=== PATIENT | female | born 1990 | race Hispanic/Latino ===

== ENCOUNTER 2016-08-07 09:36 | Emergency (ER) | payer SELFPAY ==
[~2016-08-07] VITALS: Ht 162.6 cm; Wt 97.3 kg
[2016-08-07 10:49] LABS: ADD MIUA? YES; BILIRUBIN NEGATIVE; BLOOD NEGATIVE; COLOR YELLOW ((YELLOW)); GLUCOSE (STRIP) NEGATIVE; KETONES NEGATIVE; LEUKOCYTES NEGATIVE; NITRITE NEGATIVE; PROTEIN (STRIP) NEGATIVE; UROBILINOGEN 0.2 MG/DL (0.2-1.0)
[2016-08-07 10:55] LABS: EOSINOPHIL (%) 2.1 % (0-5); EOSINOPHIL COUNT 0.2 K/uL (0-0.3); HEMATOCRIT 37.3 % (36.0-46.0); IMMATURE GRANULOCYTE (%) 0.3 % (0.0-0.7); IMMATURE GRANULOCYTE COUNT 0.2 K/uL; MCH 30.9 PG (29.0-34.0); MCHC 34.3 G/DL (30.0-36.0); MCV 90.1 FL (83-99); MEAN PLAT.VOLUME 9.7 uM^3 (9.5-12.4); MONOCYTE (%) 8.4 % (3-12); MONOCYTE COUNT 0.6 K/uL (0-0.8); NEUTROPHIL (%) 61.7 % (45-76); NEUTROPHIL COUNT 4.5 K/uL (1.8-6.4); PLATELET COUNT 244 K/uL (156-360); RBC DIS.WIDTH-CV 12.9 % (11.8-14.6); RBC DIS.WIDTH-SD 41.7 % (39-53); RED BLOOD COUNT 4.14 M/uL (3.80-5.20); WHITE BLOOD COUNT 7.3 K/uL (4.1-10.2)
[2016-08-07 11:07] LABS: CHLORIDE 107 mEq/L (99-109); POTASSIUM 3.7 mEq/L (3.7-5.4); SODIUM 139 mEq/L (136-147)
[2016-08-07 11:09] LABS: GLUCOSE 87 mg/dL (70-99)
[2016-08-07 11:10] LABS: ANION GAP 7 MEQ/L (2-14)
[2016-08-07 11:12] LABS: GFR ESTIMATE (CALCULATED) > 59 mL/min/
[2016-08-07 11:13] LABS: UREA NITROGEN (BUN) 9 mg/dL (9-23)
[2016-08-07 11:17] LABS: BACTERIA NONE SEEN /HPF; EPITHELIAL CELLS 1+ /HPF; MUCUS NONE SEEN /LPF; RED BLOOD CELLS 0-5 /HPF (0-5); UCUL ADDED? NO; WHITE BLOOD CELLS 0-5 /HPF (0-5)
[2016-08-07 11:40] LABS: QUANTITATIVE HCG 23029.6 MIU/ML
[2016-08-07 12:52] VITALS: BP 122/78
== END 2016-08-07 12:52 | disposition home or self-care (01) ==
LOC: EME 09:36
PROVIDERS: Emergency Medicine
DX: O26.891 Other specified pregnancy related conditions, first trimester (principal); R10.9 Unspecified abdominal pain
CPT/HCPCS: 80048; 81003; 84702; 85025; 99281; 99284

== ENCOUNTER 2016-09-11 16:50 | Emergency (ER) | payer SELFPAY ==
[~2016-09-11] VITALS: Ht 165.1 cm; Wt 97.8 kg
[2016-09-11 17:47] LABS: HEMATOCRIT 40.8 % (36.0-46.0); MCH 29.7 PG (29.0-34.0); MCHC 32.8 G/DL (30.0-36.0); MCV 90.5 FL (83-99); MEAN PLAT.VOLUME 9.8 uM^3 (9.5-12.4); PLATELET COUNT 265 K/uL (156-360); RBC DIS.WIDTH-CV 12.2 % (11.8-14.6); RBC DIS.WIDTH-SD 40.4 % (39-53); RED BLOOD COUNT 4.51 M/uL (3.80-5.20); WHITE BLOOD COUNT 9.9 K/uL (4.1-10.2)
[2016-09-11] MEDS ORDERED: NORCO 5/3251 TABLET PO (20:24)
[2016-09-11 20:31] LABS: ADD MIUA? YES; BILIRUBIN NEGATIVE; BLOOD LARGE; GLUCOSE (STRIP) NEGATIVE; KETONES NEGATIVE; LEUKOCYTES SMALL; NITRITE NEGATIVE; PROTEIN (STRIP) NEGATIVE; SPECIFIC GRAVITY 1.012 (1.000-1.030); UROBILINOGEN 0.2 MG/DL (0.2-1.0)
[2016-09-11 20:37] LABS: COLOR LT.RED ((YELLOW))
[2016-09-11 20:59] VITALS: BP 109/75
[2016-09-11 21:17] LABS: BACTERIA 2+ /HPF; EPITHELIAL CELLS 2+ /HPF; MUCUS NONE SEEN /LPF; RED BLOOD CELLS TNTC /HPF (0-5); UCUL ADDED? NO; WHITE BLOOD CELLS 0-5 /HPF (0-5)
== END 2016-09-11 20:59 | disposition home or self-care (01) ==
LOC: EME 16:50 → RME 16:50
DX: O02.1 Missed abortion (principal); N93.9 Abnormal uterine and vaginal bleeding, unspecified; R10.2 Pelvic and perineal pain
CPT/HCPCS: 81003; 84702; 85027

== ENCOUNTER 2017-02-15 21:37 | Emergency (ER) | payer SELFPAY ==
[~2017-02-15] VITALS: Ht 157.5 cm; Wt 99.8 kg
[~2017-02-15 21:37] MED LIST: NORCO 5/3251 TABLET PO
[2017-02-15 22:38] LABS: HEMATOCRIT 36.2 % (36.0-46.0); MCH 30.3 PG (29.0-34.0); MCV 89.2 FL (83-99); PLATELET COUNT 248 K/uL (156-360); RBC DIS.WIDTH-CV 12.3 % (11.8-14.6); RBC DIS.WIDTH-SD 40.4 % (39-53); RED BLOOD COUNT 4.06 M/uL (3.80-5.20); WHITE BLOOD COUNT 8.3 K/uL (4.1-10.2)
[2017-02-15 22:51] LABS: CHLORIDE 105 mEq/L (99-109); POTASSIUM 3.8 mEq/L (3.7-5.4); SODIUM 138 mEq/L (136-147)
[2017-02-15 22:53] LABS: GLUCOSE 93 mg/dL (70-99)
[2017-02-15 22:55] LABS: ANION GAP 8 MEQ/L (2-14); TOTAL BILIRUBIN 0.2 mg/dL (0.0-1.0)
[2017-02-15 22:57] LABS: ALKALINE PHOSPHATASE 53 IU/L (3-129); GFR ESTIMATE (CALCULATED) > 59 mL/min/
[2017-02-15 22:58] LABS: UREA NITROGEN (BUN) 7 mg/dL (9-23)
[2017-02-15 23:00] LABS: LIPASE 8 U/L (1.0-51.0)
[2017-02-15 23:07] LABS: QUANTITATIVE HCG 10308.2 MIU/ML
[2017-02-15 23:35] LABS: ADD MIUA? YES; BILIRUBIN NEGATIVE; BLOOD NEGATIVE; COLOR COLORLESS ((YELLOW)); GLUCOSE (STRIP) NEGATIVE; KETONES NEGATIVE; LEUKOCYTES TRACE; NITRITE NEGATIVE; PROTEIN (STRIP) NEGATIVE; SPECIFIC GRAVITY 1.005 (1.000-1.030); UROBILINOGEN 0.2 MG/DL (0.2-1.0)
[2017-02-15 23:41] LABS: BACTERIA RARE /HPF; EPITHELIAL CELLS RARE /HPF; MUCUS NONE SEEN /LPF; RED BLOOD CELLS 0-5 /HPF (0-5); UCUL ADDED? NO; WHITE BLOOD CELLS 0-5 /HPF (0-5)
[2017-02-16 00:10] VITALS: BP 123/79
== END 2017-02-16 00:11 | disposition home or self-care (01) ==
LOC: EME 21:37
DX: O20.0 Threatened abortion (principal); Z3A.18 18 weeks gestation of pregnancy
CPT/HCPCS: 76805; 80053; 81003; 83690; 84702; 85027; 99281; 99283

== ENCOUNTER → 2017-02-28 | Outpatient (CLI) | payer SELFPAY | END | disposition home or self-care (01) | LOC: RAD 09:08 | DX: Z3A.19 19 weeks gestation of pregnancy (principal) | CPT/HCPCS: 76805 ==

== ENCOUNTER → 2017-05-09 | Outpatient (CLI) | payer SELFPAY | END | disposition home or self-care (01) | LOC: RAD 03-21 14:00 | DX: Z36.2 Encounter for other antenatal screening follow-up (principal); Z3A.29 29 weeks gestation of pregnancy | CPT/HCPCS: 76816 ==

== ENCOUNTER → 2017-06-06 | Outpatient (CLI) | payer SELFPAY | END | disposition home or self-care (01) | LOC: RAD 10:00 | DX: Z3A.34 34 weeks gestation of pregnancy (principal) | CPT/HCPCS: 76816 ==

== ENCOUNTER 2017-07-15 06:30 | Inpatient (IN) | payer OTHER ==
[2017-07-15] VITALS (22 sets, daily range): BP systolic 103–131; BP diastolic 57–80
[~2017-07-15] VITALS: Ht 160 cm; Wt 101.3 kg
[2017-07-15 10:22] LABS: BASOPHIL (%) 0.3 % (0-1); EOSINOPHIL (%) 1.4 % (0-5); EOSINOPHIL COUNT 0.1 K/uL (0-0.3); HEMATOCRIT 34.7 % (36.0-46.0); HEMOGLOBIN 11.7 G/DL (11.9-15.5); IMMATURE GRANULOCYTE (%) 0.6 % (0.0-0.7); LYMPHOCYTE (%) 16.5 % (15-42); LYMPHOCYTE COUNT 1.3 K/uL (1.0-2.8); MCH 29.1 PG (29.0-34.0); MCHC 33.7 G/DL (30.0-36.0); MCV 86.3 FL (83-99); MONOCYTE (%) 8.3 % (3-12); MONOCYTE COUNT 0.7 K/uL (0-0.8); NEUTROPHIL (%) 72.9 % (45-76); NEUTROPHIL COUNT 5.8 K/uL (1.8-6.4); PLATELET COUNT 244 K/uL (156-360); RBC DIS.WIDTH-CV 13.6 % (11.8-14.6); RBC DIS.WIDTH-SD 42.5 % (39-53); RED BLOOD COUNT 4.02 M/uL (3.80-5.20)
[2017-07-16 07:20] LABS: BASOPHIL (%) 0.2 % (0-1); EOSINOPHIL (%) 0.7 % (0-5); EOSINOPHIL COUNT 0.1 K/uL (0-0.3); HEMATOCRIT 31.5 % (36.0-46.0); HEMOGLOBIN 10.5 G/DL (11.9-15.5); IMMATURE GRANULOCYTE (%) 0.6 % (0.0-0.7); LYMPHOCYTE (%) 15.9 % (15-42); LYMPHOCYTE COUNT 1.8 K/uL (1.0-2.8); MCH 29.2 PG (29.0-34.0); MCHC 33.3 G/DL (30.0-36.0); MCV 87.5 FL (83-99); MONOCYTE (%) 9.6 % (3-12); MONOCYTE COUNT 1.1 K/uL (0-0.8); NEUTROPHIL COUNT 8.1 K/uL (1.8-6.4); PLATELET COUNT 263 K/uL (156-360); RBC DIS.WIDTH-CV 13.7 % (11.8-14.6); RBC DIS.WIDTH-SD 43.7 % (39-53)
[2017-07-16 07:48] VITALS: BP 111/62
[2017-07-16 14:10] VITALS: BP 105/58
[2017-07-16 23:29] VITALS: BP 102/58
== END 2017-07-17 13:45 | disposition home or self-care (01) | DRG 775 ==
LOC: LDRP-OP 06:30 → 2WEST 06:31 → LDRP-OP 08-12 00:03
PROVIDERS: Advanced Practice Midwife
DX: O70.0 First degree perineal laceration during delivery (principal); O69.1XX0 Labor and delivery complicated by cord around neck, with compression, not applicable or unspecified; O99.214 Obesity complicating childbirth; E66.9 Obesity, unspecified; Z68.38 Body mass index [BMI] 38.0-38.9, adult; Z23 Encounter for immunization; Z3A.40 40 weeks gestation of pregnancy; Z37.0 Single live birth
CPT/HCPCS: 85025; 90686; J0595; J7120

== ENCOUNTER 2017-09-17 08:26 | Observation (INO) | payer OTHER ==
[~2017-09-17] VITALS: Ht 160 cm; Wt 95.5 kg
[2017-09-17 08:54] LABS: HEMATOCRIT 40.7 % (36.0-46.0); HEMOGLOBIN 13.8 G/DL (11.9-15.5); MCH 29.1 PG (29.0-34.0); MCHC 33.9 G/DL (30.0-36.0); MCV 85.7 FL (83-99); RBC DIS.WIDTH-CV 14.4 % (11.8-14.6); RBC DIS.WIDTH-SD 45.4 % (39-53); RED BLOOD COUNT 4.75 M/uL (3.80-5.20); WHITE BLOOD COUNT 14.7 K/uL (4.1-10.2)
[2017-09-17 08:58] LABS: APPEARANCE CLOUDY ((CLEAR)); BILIRUBIN NEGATIVE; BLOOD SMALL; COLOR YELLOW ((YELLOW)); GLUCOSE (STRIP) NEGATIVE; KETONES NEGATIVE; LEUKOCYTES MODERATE; NITRITE NEGATIVE; PROTEIN (STRIP) 30; SPECIFIC GRAVITY 1.027 (1.000-1.030)
[2017-09-17 09:01] LABS: BACTERIA RARE /HPF; CALCIUM OXALATE CRYSTALS 1+ /HPF; EPITHELIAL CELLS 3+ /HPF; MUCUS TRACE /LPF; RED BLOOD CELLS 0-5 /HPF (0-5); UCUL ADDED? YES
[2017-09-17 09:15] LABS: ALBUMIN 4.5 g/dL (3.2-4.8); CHLORIDE 100 mEq/L (99-109); POTASSIUM 3.8 mEq/L (3.7-5.4); SODIUM 137 mEq/L (136-147)
[2017-09-17 09:17] LABS: GLUCOSE 118 mg/dL (70-99)
[2017-09-17 09:19] LABS: TOTAL BILIRUBIN 0.4 mg/dL (0.0-1.0)
[2017-09-17 09:21] LABS: ALKALINE PHOSPHATASE 83 IU/L (3-129); CREATININE 0.8 mg/dL (0.6-1.3); GFR ESTIMATE (CALCULATED) > 59 mL/min/
[2017-09-17 09:22] LABS: UREA NITROGEN (BUN) 14 mg/dL (9-23)
[2017-09-17 09:23] LABS: AST (GOT) 50 IU/L (2-34)
[2017-09-17 09:24] LABS: ALT (GPT) 107 IU/L (3-49)
[2017-09-17 09:31] LABS: QUANTITATIVE HCG < 4.0 MIU/ML
[2017-09-17 10:03] LABS: PLAT.SUFFICIENCY ADEQUATE; PLATELET COUNT 297 K/uL (156-360)
[2017-09-17 17:10] VITALS: BP 110/62
[2017-09-17 19:35] VITALS: BP 113/54
[2017-09-17 23:40] VITALS: BP 102/61
[2017-09-18 03:55] VITALS: BP 118/65
[2017-09-18 08:41] VITALS: BP 128/64
[2017-09-18 11:50] VITALS: BP 94/53
[2017-09-18] MEDS ORDERED: ONDANSETRON HCL8 MG PO (15:47)
[2017-09-18] MEDS ORDERED: COLACE100 MG PO (15:47)
[2017-09-18] MEDS ORDERED: DILAUDID4 MG PO (15:47)
[2017-09-18 17:19] VITALS: BP 106/58
[2017-09-18 19:46] VITALS: BP 107/53
[2017-09-19 00:55] VITALS: BP 105/52
[2017-09-19 04:40] VITALS: BP 102/56
[2017-09-19 06:20] LABS: BASOPHIL (%) 0.1 % (0-1); EOSINOPHIL (%) 0.1 % (0-5); HEMATOCRIT 35.3 % (36.0-46.0); IMMATURE GRANULOCYTE (%) 0.4 % (0.0-0.7); LYMPHOCYTE (%) 8.3 % (15-42); LYMPHOCYTE COUNT 1.2 K/uL (1.0-2.8); MCH 28.7 PG (29.0-34.0); MCHC 33.1 G/DL (30.0-36.0); MCV 86.7 FL (83-99); MONOCYTE (%) 9.8 % (3-12); MONOCYTE COUNT 1.4 K/uL (0-0.8); NEUTROPHIL (%) 81.3 % (45-76); NEUTROPHIL COUNT 11.5 K/uL (1.8-6.4); PLATELET COUNT 229 K/uL (156-360); RBC DIS.WIDTH-SD 47.8 % (39-53); RED BLOOD COUNT 4.07 M/uL (3.80-5.20); WHITE BLOOD COUNT 14.2 K/uL (4.1-10.2)
[2017-09-19 06:23] LABS: HEMOGLOBIN 11.7 G/DL (11.9-15.5)
[2017-09-19 06:39] LABS: ALBUMIN 3.1 G/DL (3.2-4.8); ALKALINE PHOSPHATASE 68 IU/L (3-129); ALT (GPT) 79 IU/L (3-49); AST (GOT) 42 IU/L (2-34); CHLORIDE 104 MEQ/L (99-109); CREATININE 0.5 MG/DL (0.6-1.3); GFR ESTIMATE (CALCULATED) > 59 mL/min/; GLUCOSE 93 mg/dL (70-99); POTASSIUM 3.6 MEQ/L (3.7-5.4); SODIUM 137 MEQ/L (136-147); TOTAL BILIRUBIN 0.7 MG/DL (0.0-1.0); TOTAL PROTEIN 5.9 G/DL (6.4-8.3); UREA NITROGEN (BUN) 9 mg/dL (9-23)
[2017-09-19 08:02] VITALS: BP 101/51
== END 2017-09-19 14:38 | disposition home or self-care (01) ==
LOC: EME 08:26 → ENRESERV 15:50 → CANRESERV 16:13 → ENRESERV 16:29 → EDOF 17:00 → 2EASTP 17:00 → ENPENDDIS 09-19 → 2EASTP 09-19 14:38
PROVIDERS: Surgery
PROC: 0FT44ZZ Resection of Gallbladder, Percutaneous Endoscopic Approach (ICD-10-PCS; principal; 2017-09-18)
DX: K80.66 Calculus of gallbladder and bile duct with acute and chronic cholecystitis without obstruction (principal); K76.0 Fatty (change of) liver, not elsewhere classified; E66.01 Morbid (severe) obesity due to excess calories
CPT/HCPCS: 76705; 80053; 81003; 82948; 84702; 85025; 85027; 87086; 88304; 99281; 99284; G0378; J0131; J0690; J1100; J1885; J2250; J2405; J2543; J2710; J3010; J7050; J7120; S0020; S0028